=== PATIENT | female | born 1985 | race Two or more races ===

== ENCOUNTER 2019-01-24 21:51 | Outpatient (CLI) | payer OTHER ==
[~2019-01-24] VITALS: Ht 154.9 cm; Wt 92.0 kg
[2019-01-24 22:22] LABS: MICROSCOPIC NOT IND
== END 2019-01-24 23:13 | disposition home or self-care (01) ==
LOC: LDOP 21:51
PROVIDERS: ATTEND Obstetrics & Gynecology Maternal & Fetal Medicine
DX: Z34.83 Encounter for supervision of other normal pregnancy, third trimester (principal); Z3A.32 32 weeks gestation of pregnancy
CPT/HCPCS: 59025; 81003; 87086; 99211; G0463

== ENCOUNTER → 2020-08-14 | Outpatient (CLI) | payer OTHER ==
[~2020-08-14] VITALS: Ht 154.9 cm; Wt 88.6 kg
[~2020-08-14] MED LIST: ACETAMINOPHEN 325 MG TABLET ONE; ACETAMINOPHEN 325 MG TABLET PO PRN; DOCU-131 PO; FERR324T5 PO; IBUP-1222 PO; OXYC1TAB14 PO; PREN-3 PO
[2020-08-14 13:00] VITALS: BP 116/71
[2020-08-14 13:04] LABS: BASOPHILS % (AUTO) 1 % (0-1); EOSINOPHILS % (AUTO) 2 % (1-7); LYMPHOCYTES % (AUTO) 21 % (22-44); MEAN CORPUSCULAR HGB CONC 33.9 g/dL (32.4-35.8); MEAN PLATELET VOLUME 7.7 fL (7.4-10.4); MONOCYTES % (AUTO) 5 % (2-9); NEUTROPHILS % (AUTO) 71 % (42-75); PLATELET COUNT 285 x10^3/uL (130-400); RED BLOOD COUNT 3.89 x10^6/uL (3.82-5.3)
[2020-08-14 13:06] LABS: MD NO
[2020-08-14 13:08] LABS: MICROSCOPIC INDICATED
[2020-08-14 13:10] LABS: CREATININE,URINE RANDOM 42.3 mg/dL
[2020-08-14 13:15] LABS: ALANINE AMINOTRANSFERASE 16 U/L (12-78); ALBUMIN 2.6 g/dL (3.4-5.0); ANION GAP 7 mmol/L (5-15); BILIRUBIN, DIRECT < 0.1 mg/dL (0.1-0.2); CALCIUM 8.2 mg/dL (8.5-10.1); CHLORIDE 110 mmol/L (98-107); CREATININE 0.53 mg/dL (0.55-1.02)
[2020-08-14 13:17] LABS: ALKALINE PHOSPHATASE 91 U/L (45-117); BILIRUBIN,TOTAL 0.3 mg/dL (0.2-1.0); TOTAL PROTEIN 6.6 g/dL (6.4-8.2)
== END | disposition home or self-care (01) ==
LOC: LDOP 12:37
PROVIDERS: ATTEND Obstetrics & Gynecology Maternal & Fetal Medicine
DX: O26.893 Other specified pregnancy related conditions, third trimester (principal); R42 Dizziness and giddiness; R51.9 Headache, unspecified; Z3A.30 30 weeks gestation of pregnancy
CPT/HCPCS: 36415; 59025; 80053; 81001; 82248; 82570; 84156; 84550; 85025

== ENCOUNTER 2020-10-08 07:18 | Inpatient (IN) | payer OTHER ==
[~2020-10-08] VITALS: Ht 154.9 cm; Wt 92.2 kg
[~2020-10-08 07:18] MED LIST changes: -ACETAMINOPHEN 325 MG TABLET ONE; -ACETAMINOPHEN 325 MG TABLET PO PRN
[2020-10-08] MEDS: LACTATED RINGERS 1,000 ML IV SCH ×6 (08:20→20:30)
[2020-10-08] MEDS ORDERED: SODIUM CITRATE/CITRIC ACID 30 ML UDC PO ONE (08:30)
[2020-10-08] MEDS ORDERED: AZITHROMYCIN 500 MG in SODIUM CHLORIDE 0.9% 250 ML IV ONE (08:30)
[2020-10-08] MEDS ORDERED: METOCLOPRAMIDE 5 MG/ML, 2ML IV ONE (08:30)
[2020-10-08] MEDS ORDERED: LACTATED RINGERS 1,000 ML IVBOLUS ONE (08:30)
[2020-10-08 08:51] LABS: BASOPHILS % (AUTO) 1 % (0-1); EOSINOPHILS % (AUTO) 2 % (1-7); LYMPHOCYTES % (AUTO) 22 % (22-44); MD NO; MEAN CORPUSCULAR HEMOGLOBIN 28.3 pg (27.0-34.8); MEAN CORPUSCULAR HGB CONC 33.5 g/dL (32.4-35.8); MEAN PLATELET VOLUME 7.7 fL (7.4-10.4); MONOCYTES % (AUTO) 7 % (2-9); NEUTROPHILS % (AUTO) 69 % (42-75); PLATELET COUNT 273 x10^3/uL (130-400); RED BLOOD COUNT 4.12 x10^6/uL (3.82-5.3); RED CELL DISTRIBUTION WIDTH 14.6 % (9.6-15.2)
[2020-10-08] MEDS ORDERED: CEFAZOLIN PMX 2GM/50ML 50 ML IVPB ONE (09:00)
[2020-10-08] MEDS ORDERED: CEFAZOLIN 2,000 MG in SODIUM CHLORIDE 0.9% 50 ML IV ONE (09:00)
[2020-10-08] MEDS ORDERED: SODIUM CITRATE/CITRIC ACID 15 ML UDC ONE (10:28)
[2020-10-08] MEDS ORDERED: morphine SULFATE/PF 0.5 MG/ML, 10ML ONE (12:16)
[2020-10-08] MEDS ORDERED: DEXAMETHASONE 4 MG/ML, 1ML ONE (12:29)
[2020-10-08] MEDS ORDERED: OXYTOCIN 10 UNITS/ML, 1ML ONE (12:29)
[2020-10-08] MEDS ORDERED: PHENYLEPHRINE 10 MG/ML ONE (12:29)
[2020-10-08] MEDS ORDERED: KETOROLAC 30 MG/1 ML ONE (12:29)
[2020-10-08] MEDS ORDERED: WATER-INJECTION,STERILE 10 ML IV ONE (12:29)
[2020-10-08] MEDS ORDERED: ONDANSETRON 2MG/ML, 2ML ONE (12:29)
[2020-10-08] MEDS ORDERED: CEFAZOLIN 1,000 MG ONE (12:29)
[2020-10-08] MEDS ORDERED: MISOPROSTOL 200 MCG TABLET PR PRN (12:30)
[2020-10-08] MEDS ORDERED: ACETAMINOPHEN 325 MG TABLET PO PRN (12:30)
[2020-10-08] MEDS: KETOROLAC 30 MG/1 ML IV SCH ×2 (12:30→19:17)
[2020-10-08] MEDS ORDERED: CARBOPROST TROMETHAMINE 250 MCG/ML, 1ML IM PRN (12:30)
[2020-10-08] MEDS ORDERED: METHYLERGONOVINE 0.2 MG/ML IM PRN (12:30)
[2020-10-08] MEDS ORDERED: DIPH,PERTUSS(ACELL),TET VAC/PF NC IM-VACC PRN (12:30)
[2020-10-08] MEDS ORDERED: ONDANSETRON 2MG/ML, 2ML IV PRN (12:30)
[2020-10-08] MEDS ORDERED: OXYcodone/APAP 5/325MG TABLET PO PRN ×2 (12:30→22:30)
[2020-10-08] MEDS ORDERED: morphine SULFATE 10 MG/ML, 1ML IM PRN (12:30)
[2020-10-08] MEDS: OXYTOCIN 30U/ 0.9% NaCL 500ML 500 ML IV SCH ×2 (14:40→19:19)
[2020-10-08 15:45] VITALS: BP 111/76
[2020-10-08 16:09] LABS: MEAN CORPUSCULAR HEMOGLOBIN 27.9 pg (27.0-34.8); MEAN CORPUSCULAR HGB CONC 32.4 g/dL (32.4-35.8); MEAN PLATELET VOLUME 7.9 fL (7.4-10.4); PLATELET COUNT 282 x10^3/uL (130-400); RED BLOOD COUNT 4.29 x10^6/uL (3.82-5.3); RED CELL DISTRIBUTION WIDTH 14.9 % (9.6-15.2)
[2020-10-08] MEDS ORDERED: PROMETHAZINE 25 MG/ML, 1ML ONE (16:10)
[2020-10-08] MEDS ORDERED: PROMETHAZINE 25 MG/ML, 1ML IM ONE (16:30)
[2020-10-08 20:58] VITALS: BP 92/62
[2020-10-08] MEDS ORDERED: ONDANSETRON 2MG/ML, 2ML IVPush PRN (22:30)
[2020-10-08] MEDS ORDERED: EPHEDRINE 50 MG/ML, 1ML IVPush PRN (22:30)
[2020-10-08] MEDS ORDERED: DIPHENHYDRAMINE 50 MG/ML, 1ML IV PRN (22:30)
[2020-10-08] MEDS ORDERED: MORPHINE SULFATE 4 MG/ML, 1ML IVPush PRN (22:30)
[2020-10-08] MEDS ORDERED: NO SEDATIVES, TRANQUILIZERS OR ANTIEMETICS XX SCH (22:30)
[2020-10-09 00:21] VITALS: BP 94/58
[2020-10-09] MEDS: LACTATED RINGERS 1,000 ML IV SCH ×5 (00:26→12:30)
[2020-10-09] MEDS: KETOROLAC 30 MG/1 ML IV SCH ×4 (00:28→18:35)
[2020-10-09 04:37] VITALS: BP 91/59
[2020-10-09] MEDS: OXYTOCIN 30U/ 0.9% NaCL 500ML 500 ML IV SCH (08:30)
[2020-10-09 08:50] VITALS: BP 97/67
[2020-10-09] MEDS: PRENATAL VIT/IRON/FA 1 EACH TABLET PO SCH (08:59)
[2020-10-09] MEDS: DOCUSATE 100 MG CAPSULE PO PRN ×2 (08:59→22:21)
[2020-10-09] MEDS: OXYcodone IR 5MG TABLET PO PRN ×3 (13:27→22:21)
[2020-10-09] MEDS: ACETAMINOPHEN 325 MG TABLET PO PRN ×3 (13:28→22:21)
[2020-10-09] MEDS ORDERED: IBUPROFEN 600 MG TABLET ONE (18:38)
[2020-10-09] MEDS: IBUPROFEN 600 MG TABLET PO PRN (18:43)
[2020-10-09 20:08] VITALS: BP 96/64
[2020-10-10] MEDS: OXYcodone IR 5MG TABLET PO PRN ×5 (02:26→20:11)
[2020-10-10] MEDS: IBUPROFEN 600 MG TABLET PO PRN ×3 (02:26→15:32)
[2020-10-10] MEDS: ACETAMINOPHEN 325 MG TABLET PO PRN ×2 (02:27→11:56)
[2020-10-10 07:40] VITALS: BP 109/68
[2020-10-10] MEDS: PRENATAL VIT/IRON/FA 1 EACH TABLET PO SCH (07:52)
[2020-10-10] MEDS: DOCUSATE 100 MG CAPSULE PO PRN ×2 (07:52→20:11)
[2020-10-10] MEDS ORDERED: IBUPROFEN 600 MG TABLET PO PRN (12:30)
[2020-10-10 19:55] VITALS: BP 98/60
[2020-10-11] MEDS: IBUPROFEN 600 MG TABLET PO PRN ×3 (01:35→13:33)
[2020-10-11] MEDS: OXYcodone IR 5MG TABLET PO PRN ×3 (01:35→13:33)
[2020-10-11] MEDS ORDERED: OXYC1TAB14 PO (06:36)
[2020-10-11] MEDS ORDERED: OXYC-302 PO (06:40)
[2020-10-11] MEDS: DOCUSATE 100 MG CAPSULE PO PRN (07:33)
[2020-10-11] MEDS: PRENATAL VIT/IRON/FA 1 EACH TABLET PO SCH (07:33)
[2020-10-11] MEDS: SIMETHICONE 80 MG CHEW TAB PO PRN ×2 (07:35→13:33)
[2020-10-11 07:38] VITALS: BP 97/57
[2020-10-11] MEDS: ACETAMINOPHEN 325 MG TABLET PO PRN (13:34)
== END 2020-10-11 14:30 | disposition home or self-care (01) | DRG 784 ==
LOC: LDOP 07:18 → LDIP 08:16 → 2NW 15:37
PROVIDERS: ADMIT Obstetrics & Gynecology Maternal & Fetal Medicine; ATTEND Obstetrics & Gynecology Maternal & Fetal Medicine
PROC: 0UB70ZZ Excision of Bilateral Fallopian Tubes, Open Approach (ICD-10-PCS; principal; 2020-10-08)
PROC: 10D00Z1 Extraction of Products of Conception, Low, Open Approach (ICD-10-PCS; 2020-10-08)
DX: O34.211 Maternal care for low transverse scar from previous cesarean delivery (principal); O72.1 Other immediate postpartum hemorrhage; O99.824 Streptococcus B carrier state complicating childbirth; Z30.2 Encounter for sterilization; Z37.0 Single live birth; Z3A.38 38 weeks gestation of pregnancy; Z91.040 Latex allergy status
CPT/HCPCS: 36415; 84112; 85025; 85027; 86592; 86850; 86900; 86923; 87635; 88305; G0378; J0456; J0690; J1100; J1885; J2274; J2405; J2210; J2370; J2590; J7050; J7120